=== PATIENT | female | born 1990 | race Caucasian/White ===

== ENCOUNTER 2018-12-25 01:10 | Emergency (ER) | payer OTHER ==
[~2018-12-25] VITALS: Ht 152.4 cm; Wt 59.0 kg
[~2018-12-25 01:10] MED LIST: IBUPROFEN
[2018-12-25] MEDS ORDERED: DOXYCYCLINE HYCLATE 100MG CAPSULE PO ONE (04:30)
[2018-12-25] MEDS ORDERED: CEFTRIAXONE SODIUM 250 MG/VIAL IM ONE (04:30)
[2018-12-25] MEDS ORDERED: IBUPROFEN 600MG TABLET PO ONE (06:00)
[2018-12-25 08:44] VITALS: BP 114/63
[2018-12-25 09:28] LABS: CLARITY URINE CLOUDY (CLEAR); COLOR URINE YELLOW (YELLOW); KETONES URINE NEGATIVE (NEGATIVE); LEUKOCYTE ESTERASE URINE 3+ (NEGATIVE); NITRITE URINE NEGATIVE (NEGATIVE); OCCULT BLOOD URINE 2+ (NEGATIVE); PH URINE 5.5 (4.5-8.0); PROTEIN URINE NEGATIVE (NEGATIVE); SPECIFIC GRAVITY URINE 1.021 (1.005-1.030); UROBILINOGEN URINE 0.2 E.U./dL (0.2-1.0)
[2018-12-25 09:53] LABS: UCG SCREEN NEGATIVE
[2018-12-27 07:07] LABS: CHLAMYDIA TRACHOMATIS NAA Negative (Negative); NEISSERIA GONORRHOEAE NAA Negative (Negative)
== END 2018-12-25 08:47 | disposition home or self-care (01) ==
LOC: ER 01:10
DX: R10.2 Pelvic and perineal pain (principal); Z90.49 Acquired absence of other specified parts of digestive tract
CPT/HCPCS: 76830; 76856; 81003; 81025; 87086; 87210; 87491; 87591; 96372; 99283; J0696

== ENCOUNTER 2021-01-06 21:24 | Emergency (ER) | payer MEDICAID, OTHER ==
[~2021-01-06] VITALS: Ht 154.9 cm; Wt 73.0 kg
[2021-01-06] MEDS ORDERED: KETOROLAC 30MG/ML VIAL IV STA (23:37)
[2021-01-06] MEDS ORDERED: SUMATRIPTAN SUCCINATE 6MG/0.5ML VIAL SUBCUT ONE (23:45)
[2021-01-06] MEDS ORDERED: METOCLOPRAMIDE HCL 10MG/2ML VIAL IV ONE (23:45)
[2021-01-06] MEDS ORDERED: SODIUM CHLORIDE 0.9% 1,000 ML IV ONE (23:45)
[2021-01-07 00:31] LABS: HEMATOCRIT 35.9 % (36.0-48.0); HEMOGLOBIN 12.2 g/dL (12.0-16.0); MEAN CORPUSCULAR HEMOGLOBIN 28.4 pg (28.0-32.0); MEAN CORPUSCULAR VOLUME 83.9 fL (81.0-99.0); PLATELET 213 x1000/uL (130-400); RED BLOOD CELL COUNT 4.28 mill/uL (4.2-5.4); RED CELL DISTRIBUTION WIDTH 13.2 % (11.6-14.6)
[2021-01-07 00:42] LABS: CHLORIDE 111 mEq/L (98-107)
[2021-01-07 02:05] VITALS: BP 118/68
== END 2021-01-07 03:58 | disposition home or self-care (01) ==
LOC: ER 21:24
DX: G43.909 Migraine, unspecified, not intractable, without status migrainosus (principal); G44.89 Other headache syndrome; Z90.49 Acquired absence of other specified parts of digestive tract; Z79.899 Other long term (current) drug therapy
CPT/HCPCS: 36415; 70450; 70496; 80053; 81025; 85027; 96372; 96374; 96375; 99285; J1885; J2765; J3030; J7030; Z7610